=== PATIENT | male | born 1970 | race Native Hawaiian/Other Pacific Islander ===

== ENCOUNTER 2017-04-26 18:54 | Emergency (ER) | payer OTHER ==
[~2017-04-26] VITALS: Ht 172.7 cm; Wt 97.1 kg
[2017-04-26 20:02] VITALS: BP 14138/9; TEMP 98.2
== END 2017-04-26 20:04 | disposition home or self-care (01) ==
LOC: ED 18:54
DX: J30.9 Allergic rhinitis, unspecified (principal); J06.9 Acute upper respiratory infection, unspecified
CPT/HCPCS: 99281